=== PATIENT | male | born 1945 | race Caucasian/White ===

== ENCOUNTER → 2018-10-03 | Day surgery (SDC) | payer MEDICARE, OTHER ==
[~2018-10-03] MED LIST: BENTYL 20 MG TA20 M1 PO; COLESTIPOL HCL1 G1 PO; FLOMAX0.4 MG PO; HYDROCHLOROTHIA25 M2 PO; LOMOTIL TABLET1 EACH PO; NORCO 5-325 TA1 EACH PO; ZOCOR20 MG PO
[2018-10-03 06:42] LABS: HEMATOCRIT 47.5 % (42.0-52.0); HEMOGLOBIN 16.4 gm/dL (14.0-18.0); MCH 30.6 pg (26.0-34.0); MCHC 34.5 g/dL (28.0-37.0); MCV 88.6 fL (80.0-100.0); MPV 7.8 fl. (7.2-11.1); RBC 5.36 mil/uL (4.50-6.00); RDW-CV 13.6 % (10.5-14.5)
[2018-10-03 07:06] LABS: ALBUMIN 4.3 g/dL (3.4-5.0); CALCIUM 9.4 mg/dL (8.5-10.1); CREATININE 1.2 mg/dL (0.6-1.3); POTASSIUM 3.4 mmol/L (3.5-5.1); TOTAL BILIRUBIN 1.4 mg/dL (<0.1-1.0); TOTAL PROTEIN 8.1 g/dL (6.4-8.2)
--- NOTE | 2018-10-03 13:14 | EKG ---
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
--- NOTE | 2018-10-05 11:25 | OP ---
[address] [address] OPERATIVE REPORT Name: AD PORTILLO Room: [facility]#: [id number] Admission: 10/03/18 Attend Phys: Mario Alberto Dunn DO Discharge: Date of : 47 Report #: [id number] THIS REPORT FOR: //name// CC: Mario Alberto Agustin DO DATE OF SERVICE: 10/03/2018 REFERRING PHYSICIAN: Dr. Blu Agustin. PREOPERATIVE DIAGNOSIS: Right inguinal hernia. POSTOPERATIVE DIAGNOSIS: Right inguinal hernia. PROCEDURE: Da Benji robotic-assisted laparoscopic right inguinal hernia repair with large Bard 3DMax mesh. SURGEON: Mario Alberto Dunn DO. MATERIAL HAULER: Dr. Sima Jefferson. SECOND PULMONOLOGY PHYSICIAN: Dr. Jose Elias Will. ANESTHESIA: General endotracheal. ESTIMATED BLOOD LOSS: Less than 20 mL. COMPLICATIONS: None. DESCRIPTION OF PROCEDURE: After obtaining proper consents and discussing risks and complications with the patient, he was taken to the operating room, laid in a supine position, administered general anesthesia. He was also marked in the preoperative holding area. Once the patient was under the benefit of general anesthesia, he was prepped and draped in the usual fashion. A timeout was performed. We confirmed the appropriate patient and procedure. Preoperative antibiotics had been given. SCDs were in place and all necessary equipment was within the operating room. We then made a small supraumbilical skin incision with #11 scalpel blade. This was carried down through the skin into the subcutaneous tissue using electrocautery for hemostasis. Once the fascia was encountered, it was incised along the midline, grasped and elevated with Luis clamps and divided further. The peritoneum was then bluntly opened using a hemostat. We then placed 2-0 Vicryl sutures in a [id number] fashion to secure the da Benji camera port which was then inserted and insufflation was begun Once insufflation was complete, the patient was placed in Trendelenburg position. We then identified a right inguinal hernia, [place] [address] OPERATIVE REPORT Name: AD PORTILLO Room: [facility].#: [id number] Admission: 10/03/18 Attend Phys: Mario Alberto Dunn DO Discharge: Date of : 47 Report #: [id number] the appendix going out into the hernia sac, there was no left inguinal hernia identified. We then placed 2 more trocars, a 12 mm trocar was placed in the right upper quadrant and an 8 mm da Benji port was placed in the left upper quadrant. We then docked the da Benji robot, then inserted bipolar fenestrated grasper on the left upper abdomen and monopolar scissors in the right upper abdomen. I then broke scrub and went on console. Once on console, I then reduced the entire contents of the hernia, which was a very long normal appearing appendix and this reduced out very easily. I then opened the peritoneum from the median umbilical ligament laterally to the ASIS. Blunt dissection was then performed to develop the preperitoneal space. This was started medially and went all the way down below the pubic ramus and to the midline. I then continued the dissection laterally. We identified the hernia sac, which was completely dissected free from the cord. I then continued the dissection laterally all the way out to the ASIS to allow for placement of a large Bard 3DMax mesh. The mesh was then inserted and sutured in place to Graeme's ligament and then medial and lateral to the inferior epigastric vessels using 2-0 Vicryl suture. We then closed the peritoneal flap using a running 2-0 absorbable V-Loc suture. There was a small hole in the hernia sac, which was also repaired with a 2-0 Vicryl suture. Once this was complete, I then rescrubbed and went back to the patient's bedside. We removed all the needles and then undocked the da Benji robot. Once the robot was undocked, we used a PMI closure device to close the right and left upper quadrant trocar sites with 0 Vicryl suture. The supraumbilical trocar was then removed and the umbilical fascia was closed using the 2 previously placed 0 Vicryl sutures plus an additional 0 Vicryl suture. Skin incisions were all injected with 0.5% Marcaine without epinephrine and then closed using 4-0 Monocryl subcuticular stitches. Mastisol, Steri-Strips, sterile OpSite and pressure dressings were placed. The patient was awakened in the operating room. Sponge, needle and instrument counts were all correct x 3 at the end of the procedure. <ELECTRONICALLY SIGNED> By: Mario Alberto Dunn DO 10/05/18 1125 1004 [id number] Dunn DO /nt
== END | disposition home or self-care (01) ==
LOC: M.SUR 06:18
PROVIDERS: Surgery
DX: K40.90 Unilateral inguinal hernia, without obstruction or gangrene, not specified as recurrent (principal); I10 Essential (primary) hypertension; Z90.49 Acquired absence of other specified parts of digestive tract; Z82.49 Family history of ischemic heart disease and other diseases of the circulatory system; Z87.19 Personal history of other diseases of the digestive system; Z98.890 Other specified postprocedural states; Z91.041 Radiographic dye allergy status; Z79.899 Other long term (current) drug therapy